=== PATIENT | female | born 1995 | race African-American/Black ===

== ENCOUNTER 2021-05-22 18:27 | Emergency (ER) | payer SELFPAY ==
[~2021-05-22] VITALS: Ht 170.2 cm; Wt 86.3 kg
[2021-05-22] MEDS ORDERED: KETOROLAC 60MG/2ML VIAL IM ONE (19:15)
[2021-05-22] MEDS ORDERED: HYDROCODONE/ACETAMINOPHEN 5/325MG TABLET PO ONE (19:15)
[2021-05-22] MEDS ORDERED: CYCL10TA7 MT (20:24)
[2021-05-22] MEDS ORDERED: IBUP-2028 MT (20:24)
[2021-05-22 20:30] VITALS: BP 128/86
== END 2021-05-22 20:31 | disposition home or self-care (01) ==
LOC: ER 18:27
DX: M54.16 Radiculopathy, lumbar region (principal)
CPT/HCPCS: 81025; 96372; 99283; J1885

== ENCOUNTER 2021-10-07 22:16 | Emergency (ER) | payer MEDICAID ==
[~2021-10-07] VITALS: Ht 170.2 cm; Wt 78.7 kg
[~2021-10-07 22:16] MED LIST: CYCL10TA7 MT; IBUP-2028 MT
[2021-10-07 23:38] LABS: HEMATOCRIT. 37.6 % (36.0-48.0); HEMOGLOBIN. 12.7 g/dL (12.0-16.0); MEAN CORPUSCULAR HEMOGLOBIN 28.6 pg (28.0-32.0); MEAN CORPUSCULAR VOLUME 84.6 fL (81.0-99.0); MEAN PLATELET VOLUME 7.9 fl (7.4-10.4); PLATELET 264 x1000/uL (130-400); RED BLOOD CELL COUNT 4.45 mill/uL (4.2-5.4); RED CELL DISTRIBUTION WIDTH 13.9 % (11.6-14.6)
[2021-10-07 23:57] LABS: CHLORIDE 109 mEq/L (98-107)
[2021-10-08] MEDS ORDERED: KETOROLAC 30MG/ML VIAL IV STA (00:09)
[2021-10-08] MEDS ORDERED: ONDANSETRON HCL 4MG/2ML INJ IV STA (00:09)
[2021-10-08] MEDS ORDERED: SODIUM CHLORIDE 0.9% 1,000 ML IV ONE (00:15)
[2021-10-08 00:50] LABS: HCG SCREEN NEGATIVE
[2021-10-08 01:00] LABS: CLARITY URINE CLEAR (CLEAR); COLOR URINE YELLOW (YELLOW); KETONES URINE 2+ (NEGATIVE); LEUKOCYTE ESTERASE URINE NEGATIVE (NEGATIVE); NITRITE URINE NEGATIVE (NEGATIVE); OCCULT BLOOD URINE NEGATIVE (NEGATIVE); PH URINE 7.5 (4.5-8.0); PROTEIN URINE TRACE (NEGATIVE); SPECIFIC GRAVITY URINE 1.033 (1.005-1.030)
[2021-10-08] MEDS ORDERED: KETOROLAC 30MG/ML VIAL IV SCH (01:30)
[2021-10-08] MEDS ORDERED: ONDANSETRON HCL 4MG/2ML INJ IV SCH (01:30)
[2021-10-08] MEDS ORDERED: IBUP-2028 MT (03:38)
[2021-10-08 04:40] VITALS: BP 102/82
[2021-10-08 07:27] LABS: PLATELET ESTIMATE NORMAL
== END 2021-10-08 04:58 | disposition home or self-care (01) ==
LOC: ER 22:16
DX: R10.13 Epigastric pain (principal); J45.909 Unspecified asthma, uncomplicated; Z20.822 Contact with and (suspected) exposure to COVID-19
CPT/HCPCS: 36415; 71045; 74176; 80053; 81003; 83690; 84703; 85025; 87426; 87804; 93005; 96361; 96374; 96375; 99285; J1885; J2405; J7030

== ENCOUNTER 2023-03-07 16:33 | Emergency (ER) | payer MEDICAID ==
[~2023-03-07] VITALS: Ht 175.3 cm; Wt 70.0 kg
[~2023-03-07 16:33] MED LIST changes: +CYCL10TA21 MT; -CYCL10TA7 MT
[2023-03-07 16:51] VITALS: BP 122/83; O2SAT 99
[2023-03-07] MEDS ORDERED: SODIUM CHLORIDE 0.9% 1,000 ML IV ONE (17:15)
[2023-03-07] MEDS ORDERED: ACETAMINOPHEN 325MG TABLET PO PRN (17:15)
[2023-03-07 18:18] LABS: BASOPHILS % 0.2 % (0.0-2.0); EOSINOPHILS % 0.4 % (0.0-5.0); HEMATOCRIT. 31.2 % (36.0-48.0); HEMOGLOBIN. 10.3 g/dL (12.0-16.0); LYMPHOCYTES % 19.5 % (20.0-50.0); MEAN CORPUSCULAR HEMOGLOBIN 28.8 pg (28.0-32.0); MEAN CORPUSCULAR VOLUME 87.2 fL (81.0-99.0); MEAN PLATELET VOLUME 7.6 fl (7.4-10.4); NEUTROPHILS % 70.9 % (40.0-76.0); PLATELET 280 x1000/uL (130-400); RED BLOOD CELL COUNT 3.58 mill/uL (4.2-5.4); RED CELL DISTRIBUTION WIDTH 13.6 % (11.6-14.6); WHITE BLOOD COUNT 8.4 x1000/uL (4.5-11.0)
[2023-03-07 18:28] LABS: CHLORIDE 104 mEq/L (98-107); INDEX HEMOLYSI 1 (1-3); INDEX ICTERIC 1 (1-4); INDEX LIPEMIC 1 (1-3); POTASSIUM 3.6 mEq/L (3.5-5.1); SODIUM 138 mEq/L (136-145)
[2023-03-07 18:41] VITALS: PULSE 80; RESP 18; TEMP 99.3
[2023-03-07 18:53] LABS: ALANINE AMINOTRANSFERASE 12 IU/L (13-61); ALBUMIN 3.5 g/dL (3.4-5.0); ASPARTATE AMINOTRANSFERASE 12 IU/L (15-37); B-HCG QUANTITATIVE 47775 mIU/mL (<3); BILIRUBIN TOTAL 0.3 mg/dL (0.1-1.0); CALCIUM 8.8 mg/dL (8.5-10.1); CARBON DIOXIDE 25 mEq/L (21-32); CREATININE 0.6 mg/dL (0.6-1.3); GLUCOSE 91 mg/dL (70-105); PROTEIN TOTAL 7.7 g/dL (6.0-8.3); UREA NITROGEN BLOOD 6 mg/dL (7-21)
[2023-03-07] MEDS ORDERED: HYDROCODONE/ACETAMINOPHEN 5/325MG TABLET PO ONE (20:00)
[2023-03-07] MEDS ORDERED: HYDR-4001 MT (20:02)
== END 2023-03-07 21:03 | disposition home or self-care (01) ==
LOC: ER 20:23
DX: O46.8X1 Other antepartum hemorrhage, first trimester (principal); Z3A.08 8 weeks gestation of pregnancy; J45.909 Unspecified asthma, uncomplicated
CPT/HCPCS: 99284; 76801; 80053; 84702; 85025; 86850; 86900; 86901; 36415; 76817; J7030